=== PATIENT | female | born 1975 ===

== ENCOUNTER 2016-11-24 08:28 | Emergency (ER) | payer OTHER, SELFPAY ==
[2016-11-24 08:29] VITALS: BMI 23.5
[2016-11-24 08:43] VITALS: RESP 18
--- NOTE | 2016-11-24 10:46 | C.PDOC ---
History Of Present Illness Patient is a 41 year old female presents to ED for evaluation of bilateral thumb pain for the last 3 weeks. 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 Patient also complaints of headache since yesterday. Notes that she gets headaches frequently, and normally takes Tylenol for it, but has not taken any pain medications this time. Otherwise, denies any change in sensation, nausea, vomiting, vision change, neck pain, photophobia, fever, or any other associated symptoms at this time. Time Seen by Provider: 11/24/16 08:47 Chief Complaint (Nursing): Finger,Hand,&Wrist History Per: Patient History/Exam Limitations: no limitations Onset/Duration Of Symptoms: Days (3 weeks) Current Symptoms Are (Timing): Still Present Quality: Aching, "Pain" Exacerbating Factor(s): Nothing Recent travel outside of the [place]: No Additional History Per: Patient Past Medical History Reviewed: Historical Data, Nursing Documentation, Vital Signs Vital Signs: Last Vital Signs Temp 97.7 F 11/24/16 10:55 Pulse 67 11/24/16 10:55 Resp 18 11/24/16 10:55 BP 128/84 11/24/16 10:55 Pulse Ox 100 11/24/16 11:39 - Medical History PMH: HTN Family History: States: Unknown Family Hx - Social History Hx Tobacco Use: No Hx Alcohol Use: No Hx Substance Use: No - Immunization History Hx Tetanus Toxoid Vaccination: No Hx Influenza Vaccination: Yes Hx Pneumococcal Vaccination: Yes Review Of Systems Except As Marked, All Systems Reviewed And Found Negative. Constitutional: Negative for: Fever, Chills Cardiovascular: Negative for: Chest Pain, Palpitations Respiratory: Negative for: Shortness of Breath Gastrointestinal: Negative for: Nausea, Vomiting Musculoskeletal: Positive for: Hand Pain (bilateral thumb pain) Skin: Negative for: Rash, Bruising Neurological: Positive for: Headache. Negative for: Weakness, Numbness, Dizziness Physical Exam - Physical Exam Appears: Non-toxic, No Acute Distress Skin: Normal Color, Warm, Dry, No Other (no erythema to bilateral thumb or hand) Head: Atraumatic, Normacephalic Eye(s): bilateral: Normal Inspection, PERRL, EOMI Oral Mucosa: Moist Neck: Supple Cardiovascular: Rhythm Regular Respiratory: Normal Breath Sounds, No Rales, No Rhonchi, No Wheezing Extremity: Normal ROM (FROM of bilateral thumb and other digits), No Tenderness , Capillary Refill (<2 sec.), No Deformity, No Swelling, Other (trigger bilateral thumbs L>R) Extremity: Bilateral: Atraumatic, Normal Color And Temperature, Normal ROM Pulses: Left Radial: Normal, Right Radial: Normal Neurological/Psych: Oriented x3, Normal Speech, Normal Cognition, Normal Motor, Normal Sensation, Other (neuro intact, no focal deficits) ED Course And Treatment O2 Sat by Pulse Oximetry: 100 (RA) Pulse Ox Interpretation: Normal - Other Rad Bilateral hand x-ray X-Ray: Interpreted by Me, Viewed By Me Interpretation: No acute fracture or dislocation. Progress Note: Bilateral hand x-rays ordered and reviewed. Patient was treated with Reglan PO, and Toradol IM. On reassessment, patient is resting comfortably , is tolerating PO, and reports improvement of headache. No neurologic deficit, photophobia, rash, fever, or nuchal rigidity. Patient was instructed to follow up with hand specialist and clinic in 1-2 days for further evaluation. Disposition - Disposition Referrals: [facility] [Outside] [facility] [Outside] [facility] [Outside] Dave Kuo MD [Staff Provider] - Disposition: HOME/ ROUTINE Disposition Time: 10:44 Condition: STABLE Additional Instructions: Follow up in clinic and Hand specialist within 1-2 days. Return to ED if feel worse. Prescriptions: Ibuprofen [Motrin Tab] 600 mg PO Q8 #30 tab Metoclopramide [Reglan] 1 tab PO TID PRN #25 tab PRN Reason: Headache Instructions: Tendinitis (ED), General Headache (ED) Forms: [facility] (Paraguayan) Print Language: DUTCH - Clinical Impression Clinical Impression: Headache, Bilateral hand pain - PA / AIR TRANSPORTATION PROVIDER / Resident Statement MD/DO has reviewed & agrees with the documentation as recorded. - Scribe Statement The provider has reviewed the documentation as recorded by the Ducibe Demian Constantino All medical record entries made by the Scribe were at my direction and personally dictated by me. I have reviewed the chart and agree that the record accurately reflects my personal performance of the history, physical exam, medical decision making, and the department course for this patient. I have also personally directed, reviewed, and agree with the discharge instructions and disposition.
[2016-11-24 10:56] VITALS: BP 128/84; PULSE 67; TEMP 97.7
[2016-11-24 11:12] VITALS: O2SAT 100
--- NOTE | 2016-11-24 13:22 | RAD ---
PROCEDURE: Bilateral hand radiographs. HISTORY: pain COMPARISON: None. FINDINGS: BONES: Right Hand: Normal. No osteoarthritic changes. Left Hand: Normal. No osteoarthritic changes. JOINTS: Right Hand: Normal. Left Hand: Normal. SOFT TISSUES: Right Hand: Normal. Left Hand: Normal. OTHER FINDINGS: None. IMPRESSION: Normal radiographs of the hands.
== END 2016-11-24 10:58 | disposition home or self-care (01) ==
LOC: C.ER 08:28
DX: M79.645 Pain in left finger(s) (principal); M79.644 Pain in right finger(s); R51 Headache
CPT/HCPCS: 73130; 96372; 99285; J1885